=== PATIENT | female | born 1995 | race Caucasian/White ===

== ENCOUNTER 2017-02-27 23:59 | Emergency (ER) | payer OTHER ==
--- NOTE | ~2017-02-27 | CR63 ---
[facility] A Service of [facility] RADIOLOGY TEXT RESULTS PATIENT: ALE HUIZAR LOCATION: [facility] : [birth year] UNIT #: [id number] AGE: [address]: Mally Gonzalez APRN SEX: F ORDER DR: [id number] [facility] [address] [place], [place] [address] [id number] MR#: [id number] Acc #: [id number] NAME: ALE HUIZAR. : 1995 SEX: F STUDY DATE/TIME: 02/28/2017 00:22 UNIT: [facility] ROOM: STUDY DESCRIPTION: CR Chest 2 View Attending Physician: Mally Gonzalez A.P.R.N. Ordering Physician: Mally Gonzalez A.P.R.N. Primary Care Physician: Primary Care Physician No MEDICAL IMAGING REPORT This report is preliminary unless electronic signature is present EXAM Chest x-ray 02/28/2017 0022 hours INDICATION Shortness of air, cough, congestion for 1 day. COMPARISON 01/24/2017. FINDINGS PA and lateral examination of the chest upright shows a good expansion of the parenchyma with a normal distribution of the pulmonary vascularity. There is no indication of congestion, effusion, infiltrate, tumor, or nodular density. The pleural reflections and diaphragmatic contours are normal. The cardiac silhouette and mediastinal anatomy is within normal limits. IMPRESSION Normal chest. Dictated by... Eric Whittaker Jr., M.D. THIS IS AN ELECTRONICALLY VERIFIED REPORT Eric Whittaker Jr., M.D. at 02/28/2017 11:14 AM EILEEN/sekou TD: 02/28/2017 07:52 JOB #: [id number] MEDICAL IMAGING REPORT [facility] A Service of [facility] RADIOLOGY TEXT RESULTS PATIENT: ALE HUIZAR LOCATION: [facility] : [birth year] UNIT #: [id number] AGE: [address]: Mally Gonzalez APRN SEX: F ORDER DR: Page 1 of 1 COPY
[2017-02-27 23:06] LABS: INFLUENZA A NEG (NEG); INFLUENZA B NEG (NEG)
[~2017-02-27 23:59] MED LIST: ALBUTEROL17 G1 IH; ANTIBIOTIC; BACTRIM DS TABL1 TA1 PO; BENADRYL PO; BIRTH CONTROL PILL PO; DICLOFENAC PO; DOCUSATE SODIU100 MG PO; FLEXERIL10 MG PO; IBUPROFEN PO; IBUPROFEN800 MG PO; IRON SUPPLEMENT1 TAB PO; KEFLEX500 MG PO; LOMOTIL WHITE2.5 M1 PO; LORTAB 5/500 TA1 TA1 PO; MACROBID100 MG PO; NAPROSYN250 M1 PO; NAPROXEN PO; NO MEDICATIONS; PHENERGAN25 M1 PO; POLYTRIM O10 ML OPTH OD; PRENATAL1 TA1 PO; SYMBICORT INH; TRI LO SPRINTEC; TYLENOL #3 PO; VOLTAREN75 MG PO; ZYRTEC PO; ZYRTEC10 M2 PO
[2017-02-28 00:32] LABS: URINE SOURCE CLEAN CATCH
[2017-02-28 00:37] LABS: URINE APPEARANCE CLEAR; URINE BILIRUBIN NEG (NEG); URINE BLOOD NEG (NEG); URINE COLOR YELLOW; URINE GLUCOSE NEG (NEG); URINE KETONE NEG (NEG); URINE LEUKOCYTE ESTERASE NEG (NEG); URINE NITRATE NEG (NEG); URINE PROTEIN NEG (NEG); URINE SPECIFIC GRAVITY 1.011 (1.003-1.035); URINE UROBILINOGEN 0.2 MG/DL (NEG)
[2017-02-28 00:40] LABS: CULTURE INDICATED? NO
== END 2017-02-28 01:05 | disposition home or self-care (01) ==
LOC: CFTX 23:59
PROVIDERS: Nurse Practitioner
DX: J06.9 Acute upper respiratory infection, unspecified (principal); F17.210 Nicotine dependence, cigarettes, uncomplicated; Z79.899 Other long term (current) drug therapy
CPT/HCPCS: 71020; 81003; 84703; 87651; 87804; 99283